=== PATIENT | male | born 1950 | race Caucasian/White ===

== ENCOUNTER 2019-02-06 16:26 | Inpatient (IN) | payer MEDICARE ==
[2019-02-06] MEDS ORDERED: Acetaminophen 325 MG TAB PO PRN (18:41)
[2019-02-06] MEDS ORDERED: Senokot S 8.6-50 MG TAB PO PRN (18:41)
[2019-02-06] MEDS ORDERED: Bisacodyl 5 MG TAB PO PRN (18:41)
[2019-02-06] MEDS ORDERED: Ondansetron PF 4 MG/2 ML Vial IVP PRN (18:41)
[2019-02-06] MEDS ORDERED: hydrALAZINE 20 MG/ML VIAL SLOW IVP PRN (18:46)
[2019-02-06] MEDS ORDERED: Polyethylene Glycol 3350 17 GM Packet PO PRN (18:46)
[2019-02-06] MEDS: Sodium Chloride 0.9% 1,000 ML IV SCH (21:20)
[2019-02-06 21:21] LABS: #Basophils 0.1 thou/uL (0.0-0.2); #Eosinphils 0.2 thou/uL (0.0-0.7); #Lymphocytes 1.1 thou/uL (1.20-3.40); #Monocytes 0.4 thou/uL (0.11-0.59); %Basophils 1.2 % (0.0-1.0); %Eosinophils 3.3 % (0.0-10.0); %Lymphocytes 22.7 % (21.0-51.0); %Monocytes 8.7 % (0.0-10.0); Mean Corpuscular HGB CONC 34.2 g/dL (32.0-36.0); Mean Corpuscular Hemoglobin 35.5 pg (27.0-31.0); Mean Platelet Volume 9.3 fL (7.4-10.4); Platelet Count 156 thou/uL (130-400); RBC Distribution Width 11.1 % (11.5-14.5); Red Blood Cell (RBC) Count 3.67 mill/uL (4.70-6.10); White Blood Cell (WBC) Count 4.7 thou/uL (4.8-10.8)
[2019-02-06 21:28] LABS: Prothrombin Time 13.6 SEC (12.0-14.7)
[2019-02-06 21:34] LABS: PTT 22.3 SEC (22.9-36.1)
[2019-02-06 21:58] LABS: ALT (SGPT) 49 U/L (8-55); AST (SGOT) 49 U/L (5-34); Albumin 3.8 g/dL (3.4-4.8); Alkaline Phosphatase 50 U/L (40-150); Anion Gap 16 mmol/L (10-20); BUN (Urea Nitrogen) 17 mg/dL (8.4-25.7); Bilirubin, Total 0.7 mg/dL (0.2-1.2); Calc. Creatinine Clearance 0 mL/min (70-130); Carbon Dioxide 23 mmol/L (23-31); Chloride 101 mmol/L (98-107); Estimated GFR-MDRD 84; Glucose 223 mg/dL (80-115); Potassium 3.6 mmol/L (3.5-5.1); Protein, Total 7.8 g/dL (5.8-8.1); Sodium 136 mmol/L (136-145)
--- NOTE | 2019-02-07 00:59 | HP ---
This is Cuco Blas PA-C dictating a report for Brad Alvarenga MD. This is a 50-minute initial patient evaluation of which greater than 50% of the exam was spent counseling and coordinating the patient's care. Remainder of the exam was spent in review of patient's medical records and formulation of treatment plan as well as review of appropriate imaging studies. CHIEF COMPLAINT: Status post fall in August with increased falls and headaches and bilateral chronic subdural hematomas. HISTORY OF PRESENT ILLNESS: Mr. Martinez is a pleasant 68-year-old male who presents to [facility] with his for the above complaints. Apparently, the patient was walking his 90-pound Baldwin Retriever in August and the dog abruptly jerked causing the patient to fall onto his right shoulder and likely strike his head. Since that time, he has noticed dull aching headache in the bifrontal regions. Over the past roughly 2 months, his headaches have become significantly worse. He states that he has some slight progressively worsening blurred vision, although continues to use his glasses. He has not had any nausea or vomiting or significant dizziness. He has not required an assistive device for ambulation at home. He does, however, note some increased falls over the past 2 months. He was evaluated by primary care provider in the [place] area for headaches and it was thought to be related to blood pressure medication and so this was changed. Again, the headaches began to progress and his general provider physician assistant credit manager ordered an MRI of the brain to be done today. This was completed and the results as well as my review today notes chronic subdural hematomas, slightly worse on the left than the right, minimal amount of midline shift. There does not appear to be any herniation of the brain. The patient denies neck pain. PHYSICAL EXAMINATION: NEUROLOGIC: The patient is awake, alert, and appropriate. GCS is 15. He follows commands equally in all 4 extremities. He has no pronator drift. Pupils are equal, round, and reactive bilaterally. He is wearing glasses. He has good strength in all four extremities and intact sensation to light touch throughout. He is able to correctly identify a pen and define its purpose as well as correctly define what an island is. IMPRESSION/DIAGNOSIS: Status post fall, August 2018, on 81 mg aspirin for cardiac prophylaxis, now with chronic bilateral subdural hematomas. PLAN: I discussed the patient's case and imaging with Dr. Alvarenga. I have also spent a great length of time with the patient, his and his daughter, Florencia, who is an HUMAN GEOGRAPHY FACULTY MEMBER on her way from [place]. Our plan is to take the patient to surgery tomorrow for bilateral frontal and parietal mario hole placement for evacuation of subdural hematoma and all indicated procedures. I discussed the risks and benefits in great detail with the patient and his family as well as postoperative activity restrictions and postoperative recovery. We will admit him to the ICU for observation and I would like him to have q.1 hour neuro checks. His systolic blood pressure remains less than 150 and we will obviously hold his aspirin. Otherwise, the patient is neurologically stable and there is no need for emergent neurosurgical intervention. Should his neurologic status decline, we will take him to surgery more immediately. I have discussed this with the patient and his family. We will also discuss the procedure again tomorrow morning preoperatively. We also plan to obtain a head CT prior to surgery and obviously again sooner should symptoms dictate. Otherwise, please continue to monitor the patient's neurologic status. He will be n.p.o. at midnight and we will plan for surgery in the morning. Job ID: [id number]
[2019-02-07 05:12] LABS: Band 4 % (5-11); Eosinophils 4 % (0-10); Hemoglobin 11.8 g/dL (14.0-18.0); Lymphocytes 28 % (21-51); MDiff Complete? YES; Mean Corpuscular HGB CONC 34.8 g/dL (32.0-36.0); Mean Platelet Volume 10.1 fL (7.4-10.4); Monocytes 5 % (0-10); Neutrophil 58 % (42-75); Platelet Count 162 thou/uL (130-400); Platelet Morphology Comment Appears Adequate; Red Blood Cell (RBC) Count 3.29 mill/uL (4.70-6.10); White Blood Cell (WBC) Count 5.1 thou/uL (4.8-10.8)
[2019-02-07 05:17] LABS: Anion Gap 12 mmol/L (10-20); BUN (Urea Nitrogen) 20 mg/dL (8.4-25.7); Calc. Creatinine Clearance 0 mL/min (70-130); Calcium 8.7 mg/dL (7.8-10.44); Carbon Dioxide 27 mmol/L (23-31); Chloride 104 mmol/L (98-107); Estimated GFR-MDRD 89; Glucose 113 mg/dL (80-115); Potassium 3.8 mmol/L (3.5-5.1); Sodium 139 mmol/L (136-145)
--- NOTE | 2019-02-07 07:42 | CT ---
PRELIMINARY REPORT/[facility]/EMERGENCY AFTER HOURS PROCEDURE: EXAM: CT Head Without Contrast EXAM DATE/TIME: 02/07/2019 4:30 AM CLINICAL HISTORY: 68 years old, male; Condition or disease; Patient HX: Chronic bilateral sdh TECHNIQUE: Imaging protocol: Axial computed tomography images of the head/brain without contrast. COMPARISON: MRI Brain W JOSSE Waite 02/06/2019 3:30 PM FINDINGS: Brain: Subacute on chronic bilateral subdural hematomas, left greater than right, not significantly changed compared to recent MRI. Midline shift: 1-2 mm rightward midline shift. Ventricles: Normal. No ventriculomegaly. Bones/joints: Unremarkable. No acute fracture. Sinuses: Visualized sinuses are unremarkable. No acute sinusitis. Mastoid air cells: Visualized mastoid air cells are unremarkable. No mastoid effusion. Soft tissues: Unremarkable. IMPRESSION: 1. Subacute on chronic bilateral subdural hematomas, left greater than right, not significantly palomino ed compared to recent MRI. 2. Stable 1-2 mm rightward midline shift. Thank you for allowing us to participate in the care of your patient. Dictated and Authenticated by: Ron Martino MD 02/07/2019 4:48 AM Central Time ([place] & [place]) FINAL REPORT EMERGENCY AFTER HOURS CT BRAIN: This is the final report. Preliminary exam was performed by vRmya. I concur with the dictation from Charles. Chronic and subacute bilateral subdural hematomas seen. Transcribed Date/Time: 02/07/2019 9:41 AM
[2019-02-07] MEDS: Sodium Chloride 0.9% 1,000 ML IV SCH ×2 (08:47→21:19)
[2019-02-07] MEDS: Pantoprazole 40 MG VIAL IVP SCH (08:47)
--- NOTE | 2019-02-07 08:52 | PDOC.PN ---
- Subjective Encounter Start Date: 02/07/19 Encounter Start Time: 08:50 Subjective: Consulted for med mgmt including DM, HTN and s/p fall with bilat -: subdural hematomas. + VILLALBA's, falls. No N/V. Some blurred vision. -: Reviewed all hx, labs, imaging, telemetry. - Objective Resuscitation Status - Order Detail: 02/06/19 18:41 Resuscitation Status Routine Co-Sign Provider: Resuscitation Status: FULL: Full Resuscitation MAR Reviewed: Yes Vital Signs & Weight: Vital Signs (12 hours) Temp Pulse Ox 02/07/19 07:26 96 02/07/19 00:00 98.7 F 02/06/19 22:12 96 Weight Weight 2.79 oz Most Recent Monitor Data Heart Rate from ECG 53 NIBP 121/86 NIBP BP-Mean 97 Respiration from ECG 15 SpO2 98 I&O: 02/06/19 02/07/19 02/08/19 06:59 06:59 06:59 Intake Total 568 Output Total 550 0 Balance 18 0 Result Diagrams: 02/07/19 04:15 02/07/19 04:15 Additional Labs: Laboratory Tests 02/06/19 02/06/19 02/06/19 21:10 21:10 21:10 Hgb 13.0 L MCV 104.0 H PT 13.6 INR 1.0 APTT 22.3 L AST 49 H ALT 49 Radiology Reviewed by me: Yes (CT brain - subacute/chronic bilat subdural hematomas with mass effect) EKG Reviewed by me: Yes (Tele - SR) Phys Exam - Physical Examination Constitutional: NAD HEENT: PERRLA, sclera anicteric, oral pharynx no lesions Neck: no nodes, no JVD, supple, full ROM Respiratory: no wheezing, no rales, no rhonchi, clear to auscultation bilateral Cardiovascular: RRR, no significant murmur, no rub, gallop Gastrointestinal: soft, non-tender, no distention, positive bowel sounds Musculoskeletal: no edema, pulses present Neurological: normal sensation, moves all 4 limbs Psychiatric: A&O x 3 Skin: normal turgor, cap refill <2 seconds Dx/Plan (1) DM II (diabetes mellitus, type II), controlled Code(s): E11.9 - TYPE 2 DIABETES MELLITUS WITHOUT COMPLICATIONS Status: Chronic Comment: ISS, resume Metformin post-op, serial accuchecks, ADA diet (2) HTN (hypertension) Code(s): I10 - ESSENTIAL (PRIMARY) HYPERTENSION Status: Chronic Qualifiers: Hypertension type: essential hypertension Qualified Code(s): I10 - Essential (primary) hypertension Comment: Resume home BP regimen when taking po, prn Hydralazine/Clonidine, serial monitoring (3) Subdural hematoma, post-traumatic Code(s): S06.5X9A - TRAUM SUBDR HEM W LOC OF UNSP DURATION, INIT Status: Chronic Comment: Likely subacute, plan for Zhang hole placement per Neurosurgery, hold ASA and no anticoagulation, check CBC in am (4) Macrocytic anemia Code(s): D53.9 - NUTRITIONAL ANEMIA, UNSPECIFIED Status: Chronic Comment: Mild anemia, check B12/Folate level, serial H/H - Plan PT/OT, DVT proph w/SCDs Continue supportive mgmt -: Hydralazine/Clonidine prn for BP mgmt -: Resume Metformin post-op, ISS -: PT evaluation for functional assessment -: AM lab: CBC, B12, Folate * Thank you for the consult, will continue to follow with primary service.
--- NOTE | 2019-02-07 08:57 | CON ---
DATE OF CONSULTATION: HISTORY OF PRESENT ILLNESS: A 68-year-old gentleman, who presented to the ER with several month history of headache and falls apparently. His is at the bedside. A daughter who is a TAB CUTTER surgeon out at the [place] also gave excellent history. He takes aspirin 81 mg a day. Headaches have been getting progressively worse. MRI and CT showed bilateral large subdurals. He is due to go for bilateral mario holes today. PAST MEDICAL HISTORY: Diabetes, hypertension. PREVIOUS SURGERIES: 1. Appendix. 2. Hernia. 3. Tonsils. ALCOHOL: Drinks 4 to 5 drinks a day. ALLERGIES: NONE. MEDICATIONS: Chronic medications from home includes, 1. Metformin 500 twice a day. 2. Tramadol. 3. Metoprolol/hydrochlorothiazide 50/25. 4. Lisinopril 12.5. ALLERGIES: NONE. TOBACCO: None. REVIEW OF SYSTEMS: Otherwise 10 point negative. PHYSICAL EXAMINATION: GENERAL: Awake, alert and responsive. VITAL SIGNS: Sats are 90% on room air, pulse 53, blood pressure 120/80. CHEST: Decreased breath sounds. No wheezing. CARDIAC: Normal S1, S2. No gallops. ABDOMEN: No masses. LABORATORY DATA: Platelet count is normal. White count 5000, H and H 11 and 34. His clotting studies are negative. Glucose 223. His AST is 49. IMPRESSION: 1. Bilateral subdurals. 2. Hypertension. 3. Diabetes. 4. Alcohol intake, excessive. PLAN: The plan is to go for bilateral subdural. Pulmonary will follow while in the ICU. Supportive care. Consultation note, 70 minutes, 50% direct patient care. Job ID: [id number]
[2019-02-07] MEDS ORDERED: Dextrose 5% in Water 1,000 ML IV PRN (09:32)
[2019-02-07] MEDS ORDERED: HumaLOG 300 UNITS/3 ML VIAL SC PRN ×2 (09:32)
[2019-02-07] MEDS ORDERED: Dextrose 50% Abboject 50 ML SYRINGE SLOW IVP PRN (09:32)
[2019-02-07] MEDS ORDERED: Lidocaine 0.5%/Epinephrine 1:200,000 50 ml Vial ONE (09:39)
[2019-02-07] MEDS ORDERED: Thrombin 5000 UNITS/5 ML VIAL ONE (09:39)
[2019-02-07] MEDS ORDERED: Bacitracin Zinc Ointment 30 gm TUBE ONE (09:39)
[2019-02-07] MEDS ORDERED: Sodium Chloride 0.9% 0 ML ONE (10:13)
[2019-02-07] MEDS ORDERED: Fentanyl 100 MCG/2 ML VIAL ONE ×2 (10:21→12:58)
[2019-02-07] MEDS ORDERED: levETIRAcetam 1000 MG/100 ML PREMIX BAG ONE (11:05)
--- NOTE | 2019-02-07 11:06 | PRG ---
DATE OF SERVICE: 02/07/2019 I reviewed the notes of my colleague, Ms. Roopa PA-C, and I agree with its content. CHIEF COMPLAINT: Bilateral subacute on chronic subdural hematoma. SUBJECTIVE: Mr. Martinez is a 68-year-old man who in August fell while walking the dog. He has had intermittent headache and personality change ever since then. He is on a baby aspirin. 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 He obtained an MRI yesterday ordered by his primary care physician. This demonstrated left greater than right subacute on chronic subdural hematomas with moderate mass effect and no worrisome midline shift. Head CT reveals this again today. PHYSICAL EXAMINATION: On exam, he is alert, appropriate. He has no pronator drift and no focal motor deficits. LABORATORY DATA: His laboratory evaluation demonstrates mild anemia that is macrocytic in nature with a slightly elevated ALT. There may be a qualitative platelet deficiency here in addition to the aspirin use. PLAN: Surgery as I discussed with him and his family would be bilateral mario hole evacuation, likely subdural drain placement with possible craniotomy should it be necessary. We will plan to load him with levetiracetam 1000 mg IV in the surgery and continue 500 mg b.i.d. for 1 week prophylactically. Goals, indications, risks, alternatives, and complications were discussed in detail with the patient and his family regarding mario hole evacuation and possible craniotomy for subdural hematoma bilaterally. There is one bilateral subdural hematoma. Job ID: [id number]
[2019-02-07] MEDS ORDERED: Promethazine HCl 25 MG/ML VIAL IM PRN (12:47)
[2019-02-07] MEDS ORDERED: Promethazine HCl 25 MG/ML VIAL SLOW IVP PRN (12:47)
[2019-02-07] MEDS ORDERED: Meperidine HCl/PF 25 MG/ML VIAL SLOW IVP PRN (12:47)
[2019-02-07] MEDS ORDERED: HYDROmorphone 2 MG/ML VIAL SLOW IVP PRN (12:47)
[2019-02-07] MEDS ORDERED: Morphine Sulfate 2 MG/ML SYRINGE SLOW IVP PRN (12:47)
[2019-02-07] MEDS ORDERED: Ondansetron HCl/PF 4 MG/2 ML Vial IVP PRN (12:47)
[2019-02-07] MEDS ORDERED: Ketorolac Tromethamine 30 MG/ML VIAL IVP PRN (12:47)
[2019-02-07] MEDS ORDERED: Morphine 4 MG/ML VIAL ONE (13:58)
[2019-02-07] MEDS ORDERED: HYDROcodone/Acetaminophen 5/325 mg Tablet PO PRN (14:02)
[2019-02-07] MEDS: CEFAZOLIN 2 GM in Premix Bag 1 BAG IVPB SCH ×2 (14:22→21:15)
[2019-02-07] MEDS: HYDROcodone/Acetaminophen 5/325 mg Tablet PO PRN ×2 (15:23→19:42)
[2019-02-07] MEDS ORDERED: PROPOFOL 200 MG/20 ML VIAL ONE (16:03)
[2019-02-07] MEDS ORDERED: Dexamethasone 20 MG/5 ML VIAL ONE (16:03)
[2019-02-07] MEDS ORDERED: Lidocaine 1% PF 5 ML VIAL ONE (16:03)
[2019-02-07] MEDS ORDERED: ePHEDrine 50 MG/ML VIAL ONE (16:03)
[2019-02-07] MEDS ORDERED: Ondansetron PF 4 MG/2 ML Vial ONE (16:03)
[2019-02-07] MEDS ORDERED: Glycopyrrolate 0.2 MG/ML 5 ML SYRINGE ONE (16:03)
[2019-02-07] MEDS ORDERED: Rocuronium Bromide 10 MG/ML (10ML VIAL) ONE (16:03)
[2019-02-07] MEDS: Morphine 2 MG/ML SYRINGE SLOW IVP PRN (17:38)
[2019-02-08] MEDS: Morphine 2 MG/ML SYRINGE SLOW IVP PRN ×5 (00:08→22:59)
[2019-02-08] MEDS: HYDROcodone/Acetaminophen 5/325 mg Tablet PO PRN ×4 (01:28→20:44)
[2019-02-08 06:23] LABS: Band 4 % (5-11); Elliptocytes SLIGHT = 2-5 cells (100X) (0-1/hpf); Eosinophils 1 % (0-10); Hemoglobin 12.5 g/dL (14.0-18.0); Lymphocytes 21 % (21-51); MDiff Complete? YES; Mean Corpuscular HGB CONC 35.1 g/dL (32.0-36.0); Mean Corpuscular Hemoglobin 36.7 pg (27.0-31.0); Mean Platelet Volume 9.9 fL (7.4-10.4); Monocytes 6 % (0-10); Neutrophil 68 % (42-75); Platelet Count 146 thou/uL (130-400); Platelet Morphology Comment Appears Adequate; RBC Distribution Width 11.1 % (11.5-14.5); Red Blood Cell (RBC) Count 3.41 mill/uL (4.70-6.10); White Blood Cell (WBC) Count 8.6 thou/uL (4.8-10.8)
[2019-02-08] MEDS: CEFAZOLIN 2 GM in Premix Bag 1 BAG IVPB SCH ×3 (06:24→20:18)
[2019-02-08 06:48] LABS: Folate (Folic Acid) 7.6 ng/mL (7.0-31.4)
--- NOTE | 2019-02-08 07:15 | CT ---
CT HEAD NONCONTRAST: INDICATION: History of bilateral subdural hematomas. FINDINGS: Referencing the exam from previous day, and MRI from 2 days prior, there has been interval evacuation of bilateral subdural hematomas with mild residua remaining. Indwelling bilateral subdural drains a re present via right frontoparietal mario hole and left parietal mario hole. Mild postoperative extraa xial air density is present. There is no significant midline shift. Bilateral scalp prominence is s een. IMPRESSION: Interval evacuation of bilateral subdural hematomas with some minimal residual remaining bilaterally. Indwelling bilateral subdural drains are present with associated pneumocephalus. POS: LUIS
[2019-02-08] MEDS: Pantoprazole 40 MG VIAL IVP SCH (07:43)
--- NOTE | 2019-02-08 08:56 | PRG ---
DATE OF SERVICE: 02/08/2019 SUBJECTIVE: This morning, status post bilateral subdural evacuation. OBJECTIVE: GENERAL: He is awake, responsive. Headache. VITAL SIGNS: Pulse 51, saturations are 100% on room air, respiratory rate 13, blood pressure is 166/100. CHEST: No wheezing or crackles. CARDIAC: Normal S1, S2. No gallops. ABDOMEN: No masses. LABORATORY DATA: Lytes are normal. B12 is normal. Folic acid little bit low. IMPRESSION: Status post bilateral subdural, hypertension, diabetes. PLAN: Continue supportive care. Disposition as per Neurosurgery. We will follow while in the ICU. Job ID: [id number]
[2019-02-08] MEDS: Sodium Chloride 0.9% 1,000 ML IV SCH (10:16)
--- NOTE | 2019-02-08 12:28 | PRG ---
DATE OF SERVICE: 02/08/2019 Mr. Martinez is a postop day 1 from bilateral mario hole evacuation of subdural hematomas. His CT is satisfactory. Neurologically, he is intact and appears to be a bit less psychomotor slowed, as such we will start to mobilize him with gentle head of the bed elevation this morning with possible drain removal tomorrow and transferred to the floor. Job ID: [id number]
[2019-02-08] MEDS ORDERED: Tamsulosin HCl 0.4 MG CAP PO SCH (12:30)
[2019-02-08] MEDS ORDERED: Lisinopril 5 MG TAB PO SCH ×2 (12:45→13:00)
[2019-02-08] MEDS ORDERED: Folic Acid 1 MG TAB PO SCH (13:30)
--- NOTE | 2019-02-08 13:59 | PRG ---
DATE OF SERVICE: 02/08/2019 SUBJECTIVE: The patient was seen and examined at bedside. He feels better. According to him, he is able to eat his diet without any problems. He was not able to urinate to the point that he had to be straight catheterized and it drained 1200 mL of urine. He admits having some enlarged prostate in the past, but nobody offered him any medications. OBJECTIVE: VITAL SIGNS: Blood pressure is 139/95, pulse is 62, respiratory rate is 14, O2 saturation is 97% on room air. He has two drains with some bloody fluid draining. HEENT: His pupils are responding to light properly. Sclerae are nonicteric. Oral mucosa is moist. NECK: Supple. LUNGS: Clear. HEART: S1 and S2 normal. No S3. No S4. No any murmur. ABDOMEN: Soft, nontender. Bowel sounds are present. No organomegaly. EXTREMITIES: No clubbing, cyanosis, or edema. NEUROLOGIC: He moves his all four extremities. There is no any motor or sensory deficit present. Cranial nerves are intact. LABORATORY DATA: Labs showed white count of 8.6, hemoglobin 12.5, hematocrit 35.7, and MCV 105. Glycemia is ranging from 113 to 175. Vitamin B12 level is 173 and folate is 7.6. IMPRESSION AND PLAN: 1. Bilateral subdural hematoma, status post interval evacuation of them. 2. Urinary retention, most likely related to his prostate problem in the past. We are going to start him on Flomax 0.4 mg once a day. 3. Hypertension. Since he is going to be started on Flomax, I am not going to start him on any of his blood pressure medications that he was taking at home at this point just to avoid any additive effect of those two medications on the blood pressure. 4. Diabetes mellitus, on metformin at home. Metformin is on hold, and he is on a sliding scale to continue current regimen. Accu-Cheks a.c. and at bedtime and cover with the sliding scale. Start him on Flomax. Continue cefazolin 2 g every 8 hours. Continue Keppra 500 mg twice a day IV piggyback, and if his blood pressure goes up, we will start him on his home medications. Job ID: [id number]
[2019-02-08] MEDS ORDERED: Cyanocobalamin 1000 MCG/ML VIAL IM SCH (14:00)
[2019-02-09] MEDS: Sodium Chloride 0.9% 1,000 ML IV SCH ×2 (00:13→15:41)
[2019-02-09] MEDS: HYDROcodone/Acetaminophen 5/325 mg Tablet PO PRN ×4 (04:16→21:01)
[2019-02-09] MEDS: CEFAZOLIN 2 GM in Premix Bag 1 BAG IVPB SCH ×2 (06:23→15:40)
--- NOTE | 2019-02-09 08:45 | PRG ---
DATE OF SERVICE: 02/09/2019 SUBJECTIVE: The patient is seen and examined at bedside. He still has his drains in place. We are awaiting for Neurosurgery to see him and pull those drains out according to the plan from yesterday. He has some headache. He received some Tylenol, which helped him. His appetite is good last night, he was not able to pee. There was again 1200 mL of residual, so the Riggs catheter was placed and it is in. OBJECTIVE: VITAL SIGNS: Blood pressure is 137/79, pulse is 51, respiratory rate is 11, O2 saturation is 97. Again, he has two drains in his sides, draining very small amount of bloodish fluid. HEENT: His pupils are normal size, responding to light. Sclerae are nonicteric. Oral mucosa is moist. NECK: Supple. LUNGS: Clear. HEART: S1, S2 normal. ABDOMEN: Soft, nontender. Bowel sounds are present. No organomegaly. EXTREMITIES: No clubbing, cyanosis, or edema. NEUROLOGICAL EXAMINATION: He moves his all four extremities. There is no any motor or sensory deficits. Cranial nerves are intact. LABORATORY DATA: Glycemia ranging from 116 to 175. Yesterday, vitamin B12 came back at 173 and folic acid 7.6. IMPRESSION: 1. Bilateral subdural hematoma, status post interval evacuation. 2. Urinary retention. The patient has required again a catheterization. The Riggs catheter was placed and it is left in since he had 1200 mL of residual in the bladder. 3. Hypertension, improved with use of Flomax and lisinopril. Later, we will restart him on his regular home medications. 4. Diabetes mellitus, relatively well controlled. PLAN: Continue Keppra. Continue cefazolin per Neurosurgery. We are going to continue his Riggs in status and Flomax. He will have to be discharged with a Riggs catheter and follow up with urologist at [facility] to do the voiding trial. For now, we will continue his Accu-Cheks a.c. and at bedtime and sliding scale. No metformin and later when the drains are out and he is feeling better, we will restart him on his home blood pressure medications. Job ID: [id number]
--- NOTE | 2019-02-09 09:49 | PRG ---
DATE OF SERVICE: 02/09/2019 SUBJECTIVE: This morning, he is awake and responsive. OBJECTIVE: VITAL SIGNS: Blood pressure 158/85, pulse 109, saturations on room air, temperature 98. GENERAL: He is awake, alert, and responsive. He walked in the halls. CHEST: Decreased breath sounds. No wheezing. CARDIAC: Normal S1 and S2. No gallops. ABDOMEN: No masses. IMPRESSION: Status post bilateral subdural evacuation, hypertension, diabetes. PLAN: The patient is stable. Once the drain is removed, he will be transferred to the floor. Continue blood pressure medication. Continue PT. Pulmonary/Critical Care will follow while in the ICU. Job ID: [id number]
[2019-02-09] MEDS: Pantoprazole 40 MG VIAL IVP SCH (10:20)
[2019-02-09] MEDS: Folic Acid 1 MG TAB PO SCH (10:20)
[2019-02-09] MEDS: Lisinopril 5 MG TAB PO SCH (10:26)
[2019-02-09] MEDS: Tamsulosin HCl 0.4 MG CAP PO SCH (10:27)
--- NOTE | 2019-02-09 12:03 | PRG ---
DATE OF SERVICE: 02/09/2019 SUBJECTIVE: Mr. Martinez is postoperative day 2 from bilateral subdural drainage. Drain output is minimized. He has been up in dealing with urinary retention. We have started Flomax. We are going to remove the drain and transfer him to floor. Possible discharge tomorrow. Neurologically, continues to be nonfocal and improved. Job ID: [id number]
[2019-02-09] MEDS: levETIRAcetam 500 MG TAB PO SCH (21:00)
[2019-02-10] MEDS: HYDROcodone/Acetaminophen 5/325 mg Tablet PO PRN (07:19)
[2019-02-10] MEDS: Folic Acid 1 MG TAB PO SCH (08:40)
[2019-02-10] MEDS: Lisinopril 5 MG TAB PO SCH (08:40)
[2019-02-10] MEDS: Tamsulosin HCl 0.4 MG CAP PO SCH (08:40)
[2019-02-10] MEDS: levETIRAcetam 500 MG TAB PO SCH (08:40)
--- NOTE | 2019-02-10 08:46 | OP ---
DATE OF PROCEDURE: 02/07/2019 OPERATING ROOM: OR 5. VB DEVELOPER: Cuco Blas PA-C. PREPROCEDURE DIAGNOSES: Bilateral subacute on chronic subdural hematoma with more mass effect, neurologic decline. POSTPROCEDURE DIAGNOSES: Bilateral subacute on chronic subdural hematoma with more mass effect, neurologic decline. A modifier 57 should be added to this surgery as the decision to operate was made on the day I saw the patient. Also a modifier 50 should be added to this surgery as this was a bilateral procedure. PROCEDURE PERFORMED: Bilateral subdural hematoma evacuation through mario holes with placement of bilateral subdural drains. DESCRIPTION OF PROCEDURE: After informed consent was obtained from the patient, the patient was brought to the OR. Proper patient, pause, and identification were carried out. He was positioned supine on the OR table. All appropriate points were padded. We identified the left and right frontal and parietal regions where we would make our incisions in mario holes and these regions were sterilely cleansed, prepared, and draped following hair clipping. Proper patient, pause, and identification were carried out. All four wounds were then opened and mario holes fashioned. The dura opened and motor-oil hematoma came out under pressure bilaterally. We copiously irrigated the bilateral subdural compartments free of any blood and maximized hemostasis. We then placed red rubber drains into the bilateral frontal holes and this was secured to the scalp. The wounds were again copiously irrigated and closed in anatomic layers. The patient then emerged from anesthesia. Job ID: [id number]
[2019-02-10] MEDS ORDERED: Cyanocobalamin (Vitamin B-12) 1,000 MCG TAB PO SCH (12:00)
[2019-02-10 12:50] VITALS: BP 147/85; TEMP 97.9
--- NOTE | 2019-02-10 15:59 | PRG ---
DATE OF SERVICE: 02/10/2019 SUBJECTIVE: The patient is doing quite well. He had his drain pulled out yesterday by neurosurgeon. OBJECTIVE: VITAL SIGNS: Blood pressure is 147/85, pulse is 63, temperature is 97.9, respirations 18, and O2 saturation is 97% on room air. HEENT: His pupils are responding to light properly. Sclerae are nonicteric. Oral mucosa is moist. NECK: Supple. LUNGS: Clear. HEART: S1 and S2 normal. ABDOMEN: Soft and nontender. EXTREMITIES: No clubbing, cyanosis, or edema. NEUROLOGIC: He is alert and oriented x4. There is no any motor deficit. Cranial nerves are intact. LABORATORY DATA: None except for glycemia, which is ranging from 130 to 219. IMPRESSION: 1. Bilateral one bilateral subdural hematoma status post evacuation. 2. Urinary retention. 3. Hypertension. 4. Diabetes mellitus. 5. Vitamin B12 and folic acid deficiency. DISCUSSION: The patient is going to have one dose of vitamin B12 p.o. and he will need to stay on vitamin B12 and folic acid and have those two levels checked when he has follow up with the primary care physician in the next several weeks. He will continue on Keppra and on Flomax. He will follow up with his [facility] urologist. He used to see before for the voiding trial. He will restart his metformin when he goes home and he will restart his both blood pressure medications. Job ID: [id number]
[2019-02-11] MEDS ORDERED: Cyanocobalamin (Vitamin B-12) 1,000 MCG TAB PO SCH (09:00)
== END 2019-02-10 13:45 | disposition home or self-care (01) | DRG 27 ==
LOC: ERS 16:26 → CCU 20:07 → SURG B 02-09 12:45
PROVIDERS: ADMIT Surgery; ATTEND Surgery
PROC: 00C40ZZ Extirpation of Matter from Intracranial Subdural Space, Open Approach (ICD-10-PCS; principal; 2019-02-07)
DX: S06.5X0A Traumatic subdural hemorrhage without loss of consciousness, initial encounter (principal); W18.30XA Fall on same level, unspecified, initial encounter; Y92.9 Unspecified place or not applicable; E11.9 Type 2 diabetes mellitus without complications; I10 Essential (primary) hypertension; D53.9 Nutritional anemia, unspecified; E53.8 Deficiency of other specified B group vitamins; R33.9 Retention of urine, unspecified; Z90.49 Acquired absence of other specified parts of digestive tract; Z79.84 Long term (current) use of oral hypoglycemic drugs; Z79.899 Other long term (current) drug therapy
CPT/HCPCS: 36415; 36416; 70450; 70553; 80048; 80053; 82565; 82607; 82746; 85007; 85025; 85027; 85610; 85730; 99285; C9113; J0690; J1100; J1953; J2001; J2270; J2405; J2704; J3010; J3420; J3490

== ENCOUNTER 2019-02-26 08:24 | Outpatient (CLI) | payer MEDICARE ==
--- NOTE | 2019-02-26 08:57 | CT ---
CT HEAD WITHOUT IV CONTRAST COMPARISON: 02/08/2019 HISTORY: Chronic subdural hemorrhage. Patient fell on Thanksgiving. Patient is post surgery 3 [address] to subdural hematomas.. This is follow-up examination. TECHNIQUE: Axial CT imaging at 5 mm intervals from vertex through skull base without contrast FINDINGS: Previously noted bilateral subdural drains have been removed. Skin clips are seen overlying the bilat eral frontal and parietal mario holes. There has been interval decrease in amount of pneumocephalus when compared to the prior exam. There is been interval reaccumulation of subdural collections when compared to the prior study with s ubdural drains in place. Mixed density collections are seen with increased density as well as low density subdural collections bilaterally with largest transverse dimension on the right at the level of the frontal lobe in a supraventricular location measuring 13 mm in short axis dimension, and on the left the transverse dimension is approximately 4 mm. There is sulcal effacement in the cerebral hemispheres bilaterally due to the bilateral subdural maddison chuy. There is no shift of midline structures. There is asymmetry in the lateral ventricles which is likely a normal variant and stable from prior exams. No intraventricular hemorrhage is seen. There is no evidence of an acute cortical infarction. Visualized paranasal sinuses are clear. IMPRESSION: 1. Interval removal of the bilateral subdural drains compared to study on 02/08/2019 with interval reac cumulation of subdural hematomas resulting in sulcal effacement bilaterally as described above. Small amount of pneumocephalus is present. 2. Above findings were discussed with CASSY Ordonez on 02/26/2019 at 0849 hours.
== END 2019-02-26 08:25 | disposition home or self-care (01) ==
LOC: TBSIIMAG 08:24
PROVIDERS: ATTEND Surgery
DX: S06.5X0A Traumatic subdural hemorrhage without loss of consciousness, initial encounter (principal)
CPT/HCPCS: 70450

== ENCOUNTER 2019-04-09 12:55 | Outpatient (CLI) | payer MEDICARE ==
--- NOTE | 2019-04-09 14:46 | CT ---
CT HEAD WITHOUT CONTRAST: Date: Multiple axial tomograms obtained without enhancement. INDICATION: Follow-up subdural hematomas. Comparison made to CT head dated 02/26/19 and 02/08/19. FINDINGS: Anterior subdural hematomas are again seen. Densities would indicate subacute to chronic. These are s een over both frontal lobes. The right frontal lobe subdural collection has decreased in size when co mpared to 02/26/19. It only measures 4-5 mm today, whereas it previously measured 8-9 mm. The left frontal lobe subdural collection has not significantly changed in size, continuing to measur e approximately 10.0 mm thickness when compared to the prior study. Pneumocephalus is no longer seen. Ventricles remain normal size and position. No other evidence of hemorrhage or mass. IMPRESSION: The right frontal lobe subdural collection has decreased in size. The left frontal lobe subdural benitez ection has not significantly changed. POS: OFF
== END 2019-04-09 12:56 | disposition home or self-care (01) ==
LOC: TBSIIMAG 12:55
PROVIDERS: ATTEND Surgery
DX: I62.03 Nontraumatic chronic subdural hemorrhage (principal)
CPT/HCPCS: 70450

== ENCOUNTER 2022-12-29 08:17 | Day surgery (SDC) | payer MEDICARE ==
[2022-12-28 11:52] VITALS: BMI 27.3
[2022-12-29 08:40] LABS: Prothrombin Time 13.5 sec (12.0-14.7)
[2022-12-29 08:43] LABS: PTT 22.3 sec (22.9-36.1)
[2022-12-29 10:53] VITALS: BP 124/73; TEMP 98
== END 2022-12-29 11:20 | disposition home or self-care (01) ==
LOC: CT 08:17
PROVIDERS: ATTEND Internal Medicine Hematology & Oncology
PROC: 07DR3ZX Extraction of Iliac Bone Marrow, Percutaneous Approach, Diagnostic (ICD-10-PCS; principal; 2022-12-29)
DX: C90.00 Multiple myeloma not having achieved remission (principal); I10 Essential (primary) hypertension; E78.5 Hyperlipidemia, unspecified; E11.9 Type 2 diabetes mellitus without complications; Z79.84 Long term (current) use of oral hypoglycemic drugs; Z79.899 Other long term (current) drug therapy
CPT/HCPCS: 20225; 36415; 77002; 85097; 85610; 85730; 88184; 88185; 88237; 88264; 88280; 88305; 88311; 88342; 88365